=== PATIENT | female | born 2000 | race Asian ===

== ENCOUNTER 2023-08-01 14:12 | Emergency (ER) | payer SELFPAY ==
[2023-08-01 14:22] VITALS: BP 127/72; BMI 24.3
--- NOTE | 2023-08-01 15:47 | ED.GENMED ---
History of Present Illness
General
Chief Complaint: Headache
Source: patient
Exam Limitations: none
Time Seen by Provider: 08/01/23 15:00
Travel History
Have you had any contact with someone who has COVID-19?: No
Do you have any symptoms of coronavirus? Fever > 100 degrees, chills, cough, shortness of breath, sore throat, loss of taste or smell, muscle aches, or headache?: No
History of Present Illness
History of Present Illness:
22-year-old female presents with 10 days of a headache. States first is on the right now its on the left. The headache currently is mild. States occasionally she gets a little bit of redness in her eye and a little bit of blurred vision. She has
no photophobia. No real nausea. No fevers. She states it is a 'migraine'. However, she has never been diagnosed with migraines. No injury. No loss of vision. No blurry vision
Past History
Past History
ED Past Medical History: Psychiatric (Anxiety)
Social History
Tobacco: Non-smoker
Phy Exam
Physical Exam
Physical Exam:
CONSTITUTIONAL Patient alert and oriented to person, place and time. Well-appearing. Vital signs reviewed.
HEAD atraumatic, normocephalic. Temporal artery nontender
EYES eyelids normal to inspection, Pupils equally round and reactive to light, Extraocular muscles intact, Conjunctiva normal, Sclera normal. No proptosis.
NECK normal range of motion, Trachea midline, no jugular venous distention.
ABDOMEN abdomen nontender, Bowel sounds normal. No distention.
BACK normal inspection, no obvious deformities
UPPER EXTREMITY range of motion normal, Motor strength normal, no cyanosis, no edema.
LOWER EXTREMITY range of motion normal, Motor strength normal, no cyanosis, no edema.
NEURO Speech normal, No focal motor deficits, John coma scale 15, Memory normal, Cranial Nerves intact to screening exam. No pronator drift. Normal [id number].
SKIN skin warm, dry, and normal in color.
PSYCHIATRIC patient oriented to person place and time, Normal affect.
Course
Orders/Labs/Results
Orders:
Orders
08/01/23 15:20
Test Result ONCE
08/01/23 15:21
0.9% Sodium Chloride 1000 ml [Nss] 1,000 ml IV BOLUS
08/01/23 15:49
Basic Metabolic Panel Urgent
Complete Blood Count/With Diff Urgent
08/01/23 16:23
HCG, Serum Qualitative Screen Urgent
08/01/23 17:11
Ketorolac [Toradol] 15 mg IV NOW STA
Abnormal Lab Results
08/01/23
15:49
Hgb 11.6 L g/dL
(12.0-16.0)
Hct 35.5 L %
(37.0-47.0)
MCV 77.3 L fL
(81.0-99.0)
MCH 25.3 L pg
(27.0-31.0)
MCHC 32.7 L g/dL
(33.0-37.0)
RDW 15.4 H %
(11.5-14.5)
Plt Count 459 H 10^3/uL
(130-400)
MPV 12.3 H fL
(7.4-10.4)
BUN 19 H mg/dl
(7-17)
08/01/23 15:49
08/01/23 15:49
Vital Signs
Initial and Last Documented VS:
Initial Vital Signs
Temp Pulse Resp BP Pulse Ox
98.5 F 71 16 127/72 100
08/01/23 14:22 08/01/23 14:22 08/01/23 14:22 08/01/23 14:22 08/01/23 14:22
Last Documented Vital Signs
Temp Pulse Resp BP Pulse Ox
98.5 F 71 16 127/72 100
08/01/23 14:22 08/01/23 14:22 08/01/23 14:22 08/01/23 14:22 08/01/23 14:22
MDM/Problems Addressed
MDM/Problems Addressed:
Headache
*Pulse Oximetry
Patient hypoxic: no
*Critical Care Note
Total Time (30-74mins, 75-104mins- exclusive of procedures): Not Applicable
Data Reviewed
Source: patient
Further Testing Considered But Not Given:
Consider CT but patient is well-appearing his symptoms have been ongoing for 10 days. No thunderclap headache
Patient Management
Escalation/DeEscalation of care consider admission/obs:
No clinical concern for intracranial hemorrhage. No clinical concern for glaucoma. Exam grossly benign feels much better after Toradol. Okay for discharge
ED Attending Note
-
Portions of this chart may have been created with voice recognition software.� Occasional wrong word or��sound alike� substitutions may have occurred due to the inherent limitations of voice recognition software.
Discharge Plan
Departure
Patient Disposition: Home (Routine Discharge)
Date of Disposition: 08/01/23
Time of Disposition: 18:37
Patient with high blood pressure during this ER visit?: No
Discharge Problem:
Headache
Instructions: Headache, Adult (DC)
Prescriptions:
New
ketorolac 10 mg tablet
10 mg PO Q8H PRN (Reason: Pain, headache) Qty: 20 0RF
Rx Instructions:
maximum total duration of 5 days from all oral, intranasal, or parenteral formulations
No Action
loratadine 10 MG tablet
10 mg PO DAILY
cholecalciferol (vitamin D3) 1,000 UNITS tablet
1,000 units PO DAILY
azithromycin 250 MG tablet
250 mg PO DAILY Qty: 6 0RF
prednisone 50 MG tablet
50 mg PO DAILY Qty: 5 0RF
Referrals:
NONE,* [Family Provider] -
Activity Restrictions/Additional Instructions:
Please see your doctor in the next 3 days for follow-up and reevaluation. In light of headache, an MRI may be necessary for further workup. Return immediately for vision changes, motor weakness, difficulty walking or any other concerns.
Interventions
Interventions:
*Risk Screen - Suicide Last Done: 08/01/23 14:22
*General Assessment Last Done: 08/01/23 15:30
*Neglect/Abuse Screening Last Done: 08/01/23 14:22
*ED COVID-19 Vaccine History Last Done: 08/01/23 14:22
*Nursing Disposition Last Done: 08/01/23 18:53
ED- Neurological Assessment Last Done: 08/01/23 15:30
Discharge Date and Time
Discharge Date/Time: 08/01/23 18:54
Print Language: YAKUT
[2023-08-01 15:55] LABS: % Eosinophils 2.4 % (0-6); % Immature Granulocytes 0.2 % (0-0.5); % Lymphocytes 39.4 % (20.5-51.1); % Monocytes 4.5 % (1.7-9.3); % Neutrophils 52.5 % (42.2-75.2); Absolute Basophils 0.1 10^3/uL (0-0.2); Absolute Eosinophils 0.1 10^3/uL (0-0.7); Absolute Lymphocytes 2.3 10^3/uL (1.2-3.4); Absolute Monocytes 0.3 10^3/uL (0.1-0.6); Hematocrit 35.5 % (37.0-47.0); Hemoglobin 11.6 g/dL (12.0-16.0); Mean Corp Hgb Conc. 32.7 g/dL (33.0-37.0); Mean Corpuscular Hgb 25.3 pg (27.0-31.0); Mean Corpuscular Volume 77.3 fL (81.0-99.0); Mean Platelet Volume 12.3 fL (7.4-10.4); Nucleated Red Blood Cells % 0 %; Platelet Count 459 10^3/uL (130-400); Red Blood Cell Count 4.59 10^6/uL (4.20-5.40); Red Cell Dist. Width 15.4 % (11.5-14.5); White Blood Cell Count 5.8 10^3/uL (4.8-10.8)
[2023-08-01 16:17] LABS: Blood Urea Nitrogen 19 mg/dl (7-17); Calcium 9.9 mg/dl (8.4-10.2); Carbon Dioxide 24 mmol/L (22-30); Chloride 105 mmol/L (98-107); Estimated Creatinine Clearance 101 ml/min; Glucose 85 mg/dl (70-99); Sodium 137 mmol/L (135-145); eGFR > 60.00
[2023-08-01] MEDS: NSS 1000 IV (16:24)
[2023-08-01 16:47] LABS: HCG, Serum Qualitative Screen Negative
[2023-08-01] MEDS: TORADOL 15 MG IV (17:15)
== END 2023-08-01 18:54 | disposition home or self-care (01) ==
LOC: EMR 14:12
PROVIDERS: EMERGENCY PHYSICIAN Emergency Medicine
DX: R51.9 Headache, unspecified (principal)
CPT/HCPCS: 99283; 96374; 96361; 80048; 84703; 85025